=== PATIENT | female | born 1935 ===

== ENCOUNTER 2017-05-18 11:36 | Emergency (ER) | payer MEDICARE ==
[2017-05-18 11:48] VITALS: BMI 25.2
[2017-05-18 11:56] VITALS: TEMP 98.4
--- NOTE | 2017-05-18 12:16 | ED PDOC ---
Arrival/HPI - General Chief Complaint: Trauma Time Seen by Provider: 05/18/17 12:05 Historian: Patient, Family (Son) - History of Present Illness Narrative History of Present Illness (Text): 05/18/17 12:07 A 82 year old female, whose past medical history includes dementia, brought into the emergency department by son for evaluation. Patient unable to care for herself. Son lives with patient but states he can not provide the appropriate 24 /7 care she needs. He reports her actions are putting her life and others in the building at risk. This morning son found patient standing at the window on 1 foot. He states he is concerned for patients well being. Patient notes mild neck and lower back pain but denies any fever, chills, nausea, vomiting, abdominal pain, chest pain, shortness of breath or any other complaints. Time/Duration: Prior to Arrival Context: Home Past Medical History - Provider Review Nursing Documentation Reviewed: Yes - Cardiac Hx Pacemaker: Yes (02/21/14 [employer]- WILL BRING IN CARD) - Pulmonary Hx Respiratory Disorders: No Hx Asthma: Yes Hx Bronchitis: No Hx Chronic Obstructive Pulmonary Disease (COPD): No Hx Emphysema: No Hx Pneumonia: No Hx Respiratory Aspiration: No Hx Respiratory Tract Infection: No Hx Sleep Apnea: No Hx Tuberculosis: No - Neurological Hx Paralysis: No - HEENT Hx HEENT Disorder: No Hx Blind: No Hx Cataracts: No Hx Deafness: No Hx Difficulty Chewing: No Hx Epistaxis: No Hx Glaucoma: No Hx Macular Degeneration: No - Renal Hx Renal Disorder: No Hx Dialysis: No Hx Kidney Stones: No Hx Neurogenic Bladder: No Hx Pyelonephritis: No Hx Renal Cancer: No Hx Renal Failure: No - Endocrine/Metabolic Hx Endocrine Disorders: No Hx Adrenal Cancer: No Hx Diabetes Insipidus: No Hx Diabetes Mellitus Type 1: No Hx Diabetes Mellitus Type 2: Yes Hx Hyperthyroidism: No Hx Hypothyroidism: Yes Hx Systemic Lupus Erythematosus: No - Hematological/Oncological Hx Blood Transfusions: No Hx Blood Transfusion Reaction: No - Integumentary Hx Dermatological Disorder: No Hx Basal Cell Carcinoma: No Hx Eczema: No Hx Melanoma: No Hx Psoriasis: No Hx Squamous Cell Carcinoma: No - Musculoskeletal/Rheumatological Hx Musculoskeletal Disorders: No - Gastrointestinal Hx Gastrointestinal Disorders: No Hx Colostomy: No Hx Crohn's Disease: No Hx Diverticulitis: No Hx Gall Bladder Disease: No Hx Gastroesophageal Reflux: No Hx Gastrointestinal Ulcer: No Hx Ileostomy: No Hx Liver Failure: No Hx Pancreatitis: No HX Swallowing Problems: No - Genitourinary/Gynecological Hx Genitourinary Disorders: No Hx Hematuria: No Hx Incontinence: No Hx Prostate Problems: No Hx Sexually Transmitted Diseases: No Hx Urinary Tract Infection: No - Psychiatric Hx Emotional Abuse: No Hx Physical Abuse: No Hx Substance Use: No - Surgical History Hx Amputation: No Hx Appendectomy: No Hx Cardiac Catheterization: No Hx Cholecystectomy: No Hx Coronary Stent: No Hx Gastric Bypass Surgery: No Hx Hysterectomy: Yes Hx Joint Replacement: No Hx Kidney Transplant: No Hx Liver Transplant: No Hx Mastectomy: No Hx Musculoskeletal Surgery: No Hx Open Heart Surgery: No Hx Orthopedic Surgery: No Hx Splenectomy: No Hx Valve Replacement: No Other/Comment: tonsilectomy - Anesthesia Hx Anesthesia Reactions: No Hx Malignant Hyperthermia: No - Suicidal Assessment Feels Threatened In Home Enviroment: No Family/Social History - Physician Review Nursing Documentation Reviewed: Yes Family/Social History: No Known Family HX Smoking Status: Former Smoker Hx Alcohol Use: No Hx Substance Use: No Allergies/Home Meds Allergies/Adverse Reactions: Allergies Penicillins Allergy (Unknown, Verified 08/11/15 08:14) UNKNOWN promethazine Allergy (Unknown, Verified 08/11/15 08:14) UNKNOWN Home Medications: Home Meds Medication Instructions Recorded Confirmed Atorvastatin [Lipitor] 20 mg PO QAM 02/18/14 05/18/17 Enalapril Maleate 2.5 mg PO QAM 02/18/14 05/18/17 Metoprolol Succinate [Metoprolol 50 mg PO QAM 02/22/14 05/18/17 Succinate Xl] Alendronate [Fosamax] 70 mg PO SUN 08/11/15 05/18/17 Gabapentin 100 mg PO HS 08/11/15 05/18/17 Levothyroxine Sodium [Unithroid] 25 mcg PO QAM 08/11/15 05/18/17 MetFORMIN [glucOPHAGE] 1,000 mg PO BID 08/11/15 05/18/17 Multivitamin [Gummi Bear 2 each PO QAM 08/11/15 05/18/17 Multivitamin] Aspirin [Aspirin Chewable] 81 mg PO DAILY 05/18/17 05/18/17 Review of Systems - Review of Systems Systems not reviewed;Unavailable: Dementia Physical Exam Vital Signs Reviewed: Yes Vital Signs Temp Pulse Resp BP Pulse Ox 05/18/17 15:36 78 20 131/68 98 05/18/17 11:37 98.4 F 86 19 133/76 99 Temperature: Afebrile Blood Pressure: Normal Pulse: Regular Respiratory Rate: Normal Appearance: Positive for: Non-Toxic, Comfortable, Other (Poor hygiene) Pain Distress: None Mental Status: No: Agitated, Lethargic - Systems Exam Head: Present: Atraumatic, Normocephalic Pupils: Present: PERRL Extroacular Muscles: Present: EOMI Conjunctiva: Present: Normal Mouth: Present: Moist Mucous Membranes Neck: Present: Normal Range of Motion. No: MIDLINE TENDERNESS, Paraspinal Tenderness, Other (ecchymosis or abrasions) Respiratory/Chest: Present: Clear to Auscultation, Good Air Exchange. No: Respiratory Distress, Accessory Muscle Use Cardiovascular: Present: Regular Rate and Rhythm, Normal S1, S2. No: Murmurs Abdomen: No: Tenderness, Distention, Peritoneal Signs Back: Present: Normal Inspection. No: Midline Tenderness, Paraspinal Tenderness , Other (ecchymosis or abrasions) Upper Extremity: Present: Normal Inspection. No: Cyanosis, Edema Lower Extremity: Present: Normal Inspection. No: Edema Skin: Present: Warm, Dry, Normal Color. No: Rashes Psychiatric: Present: Alert Medical Decision Making ED Course and Treatment: 05/18/17 12:07 Impression: A 82 year old female, with a history of dementia, brought in by son for evaluation Plan: -- Head CT -- Cervical spine CT -- Lumbar spine CT -- Chest xray -- EKG -- Labs -- Urine culture and Urinalysis -- Reassess and disposition Progress Notes: Plan is to medically clear patient for PES evaluation. EKG shows NSR at 67 BPM with normal intervals, normal axis. Interpreted by me. Report Date : 05/18/2017 12:49:18 PROCEDURE: CT HEAD WITHOUT CONTRAST. Dictator : Maksim Armijo MD IMPRESSION: No acute findings Report Date : 05/18/2017 12:53:19 PROCEDURE: CT Cervical Spine without contrast Dictator : Maksim Armijo MD IMPRESSION: No evidence of fracture Report Date : 05/18/2017 12:59:31 PROCEDURE: CT Lumbar Spine without contrast Dictator : Maksim Armijo MD IMPRESSION: Multilevel degenerative changes. Severe spinal stenosis at L4-5. No vertebral compression fractures. Report Date : 05/18/2017 13:00:44 PROCEDURE: CHEST RADIOGRAPH, 1 VIEW Dictator : Maksim Armijo MD IMPRESSION: No active disease. 05/18/17 17:00 Patient was offered medical admission for IV antibiotics however patient is refusing to stay. Patients son became angry and uncooperative with patients decision. Dr. Calix present in the emergency room, who was able to calm down son and explain that patient can not be held against her will. Patient will be discharged home with antibiotics to treat her UTI. Both patient and son express understanding. - Lab Interpretations Lab Results: 05/18/17 12:30 05/18/17 12:30 Lab Results 05/18/17 15:07: Urine Opiates Screen Negative, Urine Methadone Screen Negative, Ur Barbiturates Screen Negative, Ur Phencyclidine Scrn Negative, Ur Amphetamines Screen Negative, U Benzodiazepines Scrn Negative, U Oth Cocaine Metabols Negative, U Cannabinoids Screen Negative 05/18/17 15:07: Urine Color Yellow, Urine Appearance Turbid, Urine pH 8.5, Ur Specific [place] 1.015, Urine Protein 30 H, Urine Glucose (UA) Negative, Urine Ketones Negative, Urine Blood Small H, Urine Nitrate Positive H, Urine Bilirubin Negative, Urine Urobilinogen 0.2, Ur Leukocyte Esterase Small H, Urine RBC 0 - 2, Urine WBC Tntc, Ur Epithelial Cells 3 - 4, Urine Bacteria Many 05/18/17 12:30: Alcohol, Quantitative < 10 05/18/17 12:30: Sodium 143, Potassium 4.4, Chloride 104, Carbon Dioxide 30, Anion Gap 14, BUN 13, Creatinine 0.5 L, Est GFR ( Amer) > 60, Est GFR ( Non-Af Amer) > 60, Random Glucose 134 H, Calcium 11.0 H, Total Bilirubin 0.5, AST 49 H D, ALT 49, Alkaline Phosphatase 38 D, Total Protein 7.1, Albumin 4.1, Globulin 3.0, Albumin/Globulin Ratio 1.4 05/18/17 12:30: WBC 9.9 D, RBC 3.74, Hgb 11.1 L, Hct 33.8 L, MCV 90.4, MCH 29.7 , MCHC 32.8, RDW 14.9 H, Plt Count 248, MPV 9.2, Gran % 73.2 H, Lymph % (Auto) 17.7 L, [place] % (Auto) 7.6 H, Eos % (Auto) 1.3 L, Baso % (Auto) 0.2, Gran # 7.23 H, Lymph # (Auto) 1.8, [place] # (Auto) 0.8 H, Eos # (Auto) 0.1, Baso # (Auto) 0.02 I have reviewed the lab results: Yes - RAD Interpretation Radiology Orders: 05/18/17 12:06 CERVICAL SPINE W/O CONTRAST [CT] Stat HEAD W/O CONTRAST [CT] Stat LUMBAR SPINE W/O CONTRAST [CT] Stat CHEST ONE VIEW [RAD] Stat - Medication Orders Current Medication Orders: Discontinued Medications Levofloxacin/Dextrose (Levaquin 750mg) 750 mg IVPB ONCE ONE PRN Reason: Protocol Stop: 05/18/17 16:21 - Scribe Statement The provider has reviewed the documentation as recorded by the Sarah Ham Provider Scribe Attestation: All medical record entries made by the Scribe were at my direction and personally dictated by me. I have reviewed the chart and agree that the record accurately reflects my personal performance of the history, physical exam, medical decision making, and the department course for this patient. I have also personally directed, reviewed, and agree with the discharge instructions and disposition. Disposition/Present on Arrival - Present on Arrival Any Indicators Present on Arrival: No History of DVT/PE: No History of Uncontrolled Diabetes: No Urinary Catheter: No History of Decub. Ulcer: No History Surgical Site Infection Following: None - Disposition Have Diagnosis and Disposition been Completed?: Yes Diagnosis: Urinary tract infection Disposition: HOME/ ROUTINE Disposition Time: 17:01 Patient Plan: Discharge Patient Problems: Current Active Problems Problem Status Onset Urinary tract infection Acute Condition: GOOD Discharge Instructions (ExitCare): Urinary Tract Infection, Adult (DC) Prescriptions: levoFLOXacin [Levaquin] 750 mg PO DAILY #10 tab Forms: [facility] ([place])
[2017-05-18 12:39] LABS: BASO # 0.02 K/mm3 (0.0-2.0); BASO % 0.2 % (0.0-3.0); EOS # 0.1 (0.0-0.7); EOS % 1.3 % (1.5-5.0); GRAN # 7.23 (1.4-6.5); GRAN % 73.2 % (50.0-68.0); HEMOGLOBIN 11.1 g/dL (12.0-16.0); LYMPH # 1.8 (1.2-3.4); LYMPH % 17.7 % (22.0-35.0); MEAN CELL VOLUME 90.4 fl (80.0-105.0); MEAN CORPUSCULAR HEMOGLOBIN 29.7 pg (25.0-35.0); MEAN CORPUSCULAR HGB CONC 32.8 g/dl (31.0-37.0); MEAN PLATELET VOLUME 9.2 fl (7.0-11.0); MONO # 0.8 (0.1-0.6); MONO % 7.6 % (1.0-6.0); RBC 3.74 10^6/uL (3.5-6.1); RED CELL DISTRIBUTION WIDTH 14.9 % (11.5-14.5); WHITE BLOOD COUNT 9.9 10^3/ul (4.5-11.0)
[2017-05-18 12:50] LABS: ALB/GLOB RATIO 1.4 (1.1-1.8); ALBUMIN 4.1 g/dL (3.0-4.8); ALT/SGPT 49 U/L (7-56); AST/SGOT 49 U/L (14-36); BLOOD UREA NITROGEN 13 mg/dL (7-21); GFR AFRICAN-AMERICAN > 60; GFR NON-AFRICAN AMERICAN > 60
--- NOTE | 2017-05-18 12:50 | CT ---
PROCEDURE: CT HEAD WITHOUT CONTRAST. HISTORY: Fall COMPARISON: None available. TECHNIQUE: Axial computed tomography images were obtained through the head/brain without intravenous contrast. Radiation dose: Total exam DLP = 984 mGy-cm. This CT exam was performed using one or more of the following dose reduction techniques: Automated exposure control, adjustment of the mA and/or kV according to patient size, and/or use of iterative reconstruction technique. FINDINGS: HEMORRHAGE: No intracranial hemorrhage. BRAIN: No mass effect or edema. No atrophy or chronic microvascular ischemic changes. VENTRICLES: Unremarkable. No hydrocephalus. CALVARIUM: Unremarkable. PARANASAL SINUSES: Unremarkable as visualized. No significant inflammatory changes. MASTOID AIR CELLS: Unremarkable as visualized. No inflammatory changes. OTHER FINDINGS: None. IMPRESSION: No acute findings
--- NOTE | 2017-05-18 12:55 | CT ---
PROCEDURE: CT Cervical Spine without contrast HISTORY: Fall COMPARISON: None available. TECHNIQUE: Axial computed tomography images were obtained of the cervical spine without the use of intravenous contrast. Coronal and sagittal reformatted images were created and reviewed. Radiation dose: Total exam DLP = 238 mGy-cm. This CT exam was performed using one or more of the following dose reduction techniques: Automated exposure control, adjustment of the mA and/or kV according to patient size, and/or use of iterative reconstruction technique. FINDINGS: VERTEBRAE: No fracture. Normal alignment. No destructive bony lesion. DISCS/SPINAL CANAL/NEURAL FORAMINA: Degenerative changes with left-sided facet arthropathy at C3-4 and C4-5. Mild foraminal stenosis. Discs heights are grossly preserved. PARASPINAL SOFT TISSUES: Unremarkable. OTHER FINDINGS: None. IMPRESSION: No evidence of fracture
--- NOTE | 2017-05-18 13:02 | CT ---
PROCEDURE: CT Lumbar Spine without contrast HISTORY: fall COMPARISON: None. TECHNIQUE: Axial computed tomography images were obtained of the lumbar spine without the use of intravenous contrast. Coronal and sagittal reformatted images were created and reviewed. Radiation dose: Total exam DLP = 355 mGy-cm. This CT exam was performed using one or more of the following dose reduction techniques: Automated exposure control, adjustment of the mA and/or kV according to patient size, and/or use of iterative reconstruction technique. FINDINGS: VERTEBRAE: Unremarkable. No fracture. Normal alignment. DISCS/SPINAL CANAL/NEURAL FORAMINA: L1-2: Mild disc bulge L2-3: Severe disc degeneration with complete loss of disc height and osteophyte formation. Mild central and foraminal stenosis L3-4: Moderate central stenosis. Disc degeneration with loss of disc height L4-5: Severe disc degeneration with disc bulge. Facet and ligamentum flavum hypertrophy with severe stenosis L5-S1: Unremarkable. PARASPINAL SOFT TISSUES: Unremarkable. OTHER FINDINGS: None. IMPRESSION: Multilevel degenerative changes. Severe spinal stenosis at L4-5. No vertebral compression fractures.
--- NOTE | 2017-05-18 13:02 | RAD ---
PROCEDURE: CHEST RADIOGRAPH, 1 VIEW HISTORY: Fall COMPARISON: 02/27/2016 FINDINGS: LUNGS: Clear. PLEURA: No pneumothorax or pleural fluid seen. CARDIOVASCULAR: Normal. OSSEOUS STRUCTURES: No significant abnormalities. VISUALIZED UPPER ABDOMEN: Normal. OTHER FINDINGS: Tool lead pacemaker IMPRESSION: No active disease.
[2017-05-18 15:38] LABS: PH,URINE 8.5 (4.7-8.0); URINE APPEARANCE TURBID (CLEAR); URINE BILIRUBIN NEGATIVE (NEGATIVE); URINE BLOOD SMALL (NEGATIVE); URINE COLOR YELLOW (YELLOW); URINE GLUCOSE (UA) NEGATIVE (NEGATIVE); URINE LEUKOCYTE ESTERASE SMALL Leu/uL (NEGATIVE); URINE PROTEIN 30 mg/dL (<30 mg/dL); URINE UROBILINOGEN 0.2 E.U./dL (<1 E.U./dL)
[2017-05-18 15:39] VITALS: RESP 20
[2017-05-18 15:41] LABS: URINE BACTERIA MANY (NEG); URINE RBC 0 - 2 /hpf (0-2); URINE WBC TNTC /hpf (0-6)
[2017-05-18 15:57] LABS: BARBITURATES, UR NEGATIVE (NEGATIVE); BENZODIAZEPINES, UR NEGATIVE (NEGATIVE); OPIATES, UR NEGATIVE (NEGATIVE); PHENCYCLIDINE, UR NEGATIVE (NEGATIVE)
[2017-05-18] MEDS ORDERED: levoFLOXacin 750 mg in D5W 150 ML BAG IVPB ONE (16:20)
[2017-05-18 18:38] VITALS: BP 130/74; PULSE 73; O2SAT 100
--- NOTE | 2017-05-18 20:53 | CARD ---
APPROVED REPORT EKG Measurement Heart [id number] <Conclusion> Normal sinus rhythm with sinus arrhythmia Minimal voltage criteria for LVH, may be normal variant Borderline ECG
== END 2017-05-18 20:13 | disposition home or self-care (01) ==
LOC: ED 11:36
DX: N39.0 Urinary tract infection, site not specified (principal); E11.9 Type 2 diabetes mellitus without complications
CPT/HCPCS: 70450; 71045; 72125; 72131; 80053; 81001; 85025; 87040; 87086; 90791; 93005; 99285; G0480